=== PATIENT | female | born 1945 | race Caucasian/White ===

== ENCOUNTER 2017-03-19 09:54 | Emergency (ER) | payer OTHER ==
[~2017-03-19] VITALS: Ht 157.5 cm; Wt 61.9 kg
[~2017-03-19 09:54] MED LIST: ASPI81TA11 PO; B COTAB7 PO; CO Q100C9 PO; FISH1000 PO; GLUCTAB PO; LORA10TA7 PO; METO25CR PO; PAXI10TA PO; PERC5TAB12 PO; PLAV75TA PO; RAMI5CAP36 PO; [UNRECOGNIZED DRUG - CODE]
[2017-03-19 10:12] VITALS: BP 145/65; PULSE 56; RESP 16; TEMP 98.3; O2SAT 96
[2017-03-19] MEDS ORDERED: METO25TA6 PO (10:39)
[2017-03-19] MEDS ORDERED: NITR1SUB3 SL (10:39)
[2017-03-19] MEDS ORDERED: ATOR10TA15 PO (10:39)
[2017-03-19] MEDS ORDERED: METF750T PO (10:39)
[2017-03-19] MEDS ORDERED: CLAR10CA3 PO (10:39)
[2017-03-19] MEDS ORDERED: PARO20TA2 PO (10:40)
[2017-03-19] MEDS ORDERED: RAMI5CAP PO (10:40)
[2017-03-19] MEDS ORDERED: ASPI81CH CHEW (10:40)
[2017-03-19] MEDS ORDERED: UBID50CA4 PO (10:40)
[2017-03-19] MEDS ORDERED: CLOP75TA PO (10:40)
[2017-03-19] MEDS ORDERED: OMEGCAP PO (10:40)
[2017-03-19] MEDS ORDERED: VITATAB11 (10:40)
[2017-03-19] MEDS ORDERED: IBUPROFEN 400 MG TAB PO ONE (10:45)
--- NOTE | 2017-03-19 11:02 | PD ---
HPI Chief Complaint: Fall Time Seen by Provider: 10:40 Travel History International Travel<30 days: No Contact w/Intl Traveler<30days: No Traveled to known affect area: No History of Present Illness HPI 71 yo F c/o r wrist pain and r 4th toe pain after a fall from standing at home approx 12 hours prior. extra strength tylenol was helpful at home. no head trauma or loc. pt describes tripping over an area rug at home. pain is constant and worse with palpation. pt fell onto outstretched right hand. PFSH Past Medical History Hx Anticoagulant Therapy: Yes (PLAVIX AND BABY ASPIRIN) Asthma: Yes Blood Disorders: No Anxiety: Yes Depression: No Heart Rhythm Problems: No Cancer: No Cardiovascular Problems: Yes (3 STENTS) High Cholesterol: Yes Chemotherapy: No Chest Pain: Yes Congestive Heart Failure: No COPD: No Cerebrovascular Accident: No Diabetes: Yes Patient Takes Glucophage: No Diminished Hearing: No Endocrine: Yes Gastrointestinal Disorders: No Genitourinary: No Hypertension: Yes Implanted Vascular Access Dvce: Yes Musculoskeletal: No Neurologic: No Psychiatric: Yes Reproductive: No Respiratory: Yes (ASTHMA) Thyroid Disease: No Tubal Ligation: Yes Past Surgical History Abdominal Surgery: Yes (UMBILICAL HERNIA REPAIR ) Body Medical Devices: STENTS X3 Cardiac Surgery: Yes (STENTS x3 ) Cholecystectomy: Yes Eye Surgery: Yes (MACULAR HOLES REPAIRED X 2) Hysterectomy: No Tonsillectomy: Yes Other Surgery: Yes (STENTS X3, TONSILLECTOMY, TUBAL LIGATION, UMBILICAL HERNIA , GALLBLADDER) Family History Family Hypercholesterolemia: Yes Social History Alcohol Use: Yes (3-4 GLASSES OF WINE DAILY) Tobacco Use: Yes (1 1/2 ppd) Substance Use: No Allergies-Medications (Allergen,Severity, Reaction): Coded Allergies: Penicillin (Verified Allergy, Severe, HIVES, 03/19/17) Shellfish (Verified Allergy, Severe, SWELLING, SOB, 03/19/17) Chantix (Verified Allergy, Intermediate, GI UPSET, 03/19/17) Lidocaine (Verified Allergy, Intermediate, BURNING OF SKIN, 03/19/17) Iodine (Verified Allergy, Unknown, SWELLING, SOB, 03/19/17) Uncoded Allergies: ZYBAN (Adverse Reaction, Intermediate, "NIGHTMARES", 10/06/15) Reported Meds & Prescriptions Reported Meds & Active Scripts Active Reported Coenzyme Q-10 (Ubidecarenone) 50 Mg Capsule 100 Mg PO DAILY Clopidogrel (Clopidogrel Bisulfate) 75 Mg Tab 75 Mg PO DAILY Vitamin B Complex (B-Complex Vitamins) 1 Tab Aspirin 81 Mg Chew 81 Mg CHEW DAILY Ramipril 5 Mg Cap 5 Mg PO DAILY Paroxetine (Paroxetine HCl) 20 Mg Tab 20 Mg PO DAILY [place]-3 Fish Oil/Vitamin (Fish Oil-Cholecalciferol) 1,000-1,000 Mg Cap 1 Cap PO BID Nitroglycerin SL (Nitroglycerin) 0.4 Mg Subl 0.4 Mg SL DIRECTED PRN ONE TABLET UNDER THE TONGUE NEEDED FOR CHEST PAIN, MAY REPEAT EVERY FIVE MINUTES FOR A TOTAL OF 3 DOSES OR CALL 911 IF NO RELIEF Metoprolol Succinate ER 24 HR (Metoprolol Succinate) 25 Mg Tab 25 Mg PO DAILY Metformin ER (Metformin HCl) 750 Mg Vane 750 Mg PO BIDPC With evening meal Claritin (Loratadine) 10 Mg Cap 10 Mg PO DAILY Atorvastatin (Atorvastatin Calcium) 10 Mg Tab 40 Mg PO HS Review of Systems General / Constitutional: No: Fever Musculoskeletal: Positive: Pain Physical Exam Narrative GENERAL: 71 yo F, pleasant, mild distress 2/2 pain SKIN: Warm and dry. HEAD: Normocephalic. EYES: No scleral icterus. No injection or drainage. GASTROINTESTINAL: Abdomen soft, non-tender, nondistended. MUSCULOSKELETAL: No cyanosis, or edema. swelling ecchymosis/tenderness about DRUJ on right side toward radial aspect. ecchymosis swelling tenderness about right fourth toe. 2+ radial artery pulse bilaterally. + snuff box tenderness on R. BACK: Nontender without obvious deformity. No CVA tenderness. Data Data Last Documented VS Vital Signs Date Time Temp Pulse Resp B/P Pulse Ox O2 Delivery O2 Flow Rate FiO2 03/19/17 10:12 98.3 56 16 145/65 96 vs reviewed Orders Foot, Complete ([id number]) (03/19/17 10:40) Forearm (2vws) (03/19/17 10:40) Hand, Complete ([id number]) (03/19/17 10:40) Ice/Cold Pack (03/19/17 10:40) Ibuprofen (Motrin) (03/19/17 10:45) Splint Or Brace Apply/Monitor (03/19/17 11:32) Splint Or Brace Apply/Monitor (03/19/17 11:35) Fiberglass Thumb Spica Adult (03/19/17 ) Shoe Cast (03/19/17 ) MDM Medical Decision Making Medical Screen Exam Complete: Yes Emergency Medical Condition: Yes Medical Record Reviewed: Yes Differential Diagnosis Distal radius fx, carpal bone fx, contusion, toe fracture or contusion Narrative Course Last 24 hours Impressions Radius/Ulna X-Ray 03/19/17 1040 Signed Impressions: Service Date/Time: Sunday, March 19, 2017 11:06 - CONCLUSION: Unremarkable study. Kesha Barbour MD Hand X-Ray 03/19/17 1040 Signed Impressions: Service Date/Time: Sunday, March 19, 2017 11:04 - CONCLUSION: Chronic changes and no evidence for acute fracture. Kesha Barbour MD Foot X-Ray 03/19/17 1040 Signed Impressions: Service Date/Time: Sunday, March 19, 2017 11:09 - CONCLUSION: Chronic changes and no evidence for acute fracture. Kesha Barbour MD Thumb spica applied, f/u with hand surgery discussed. Hard sole shoe applied. Tylenol dosing precautions discussed. Pt ready for discharge. Diagnosis Primary Impression: Wrist injury Qualified Code: S69.91XA - Wrist injury, right, initial encounter Additional Impressions: Toe injury Qualified Code: S99.921A - Toe injury, right, initial encounter Fall Qualified Code: W19.XXXA - Fall, initial encounter Referrals: Richy Marquez III, MD 1 week Additional Instructions: PLEASE CONTINUE TO TAKE TYLENOL (NO MORE THAN 3.2 GRAMS PER DAY) FOR PAIN CONTROL. You have a choice when it comes to health care, and we are glad that you chose [facility] Hopefully, we have met your expectations on today's visit. You are welcome to return to [facility] at any time, as we are committed to meeting the health care needs of our community. Med/Other Pt SpecificInfo: No Change to Meds Disposition: 01 DISCHARGE HOME Condition: Simon Rao MD Mar 19, 2017 11:02
--- NOTE | 2017-03-19 11:50 | RADRPT ---
EXAM DATE/TIME: 03/19/2017 11:04 [facility] COMPARISON: No previous studies available for comparison. INDICATIONS : Right hand pain post fall MEDICAL HISTORY : Cardiovascular disease. Hypertension. Diabetes mellitus type 2. SURGICAL HISTORY : Tubal ligation. Cholecystectomy.Tonsillectomy.umbilical hernia repair ENCOUNTER: Initial ACUITY: 1 day PAIN SCORE: 10/10 LOCATION: Right upper extremity FINDINGS: No definite fractures, or dislocations are identified. No definite lytic or sclerotic lesion is seen . Slight degenerative arthritis is present within multiple interphalangeal joints and first carpometa carpal joint. There are punctate calcifications involving the second and third PIP joints may be inde pendent structures chronic in nature. CONCLUSION: Chronic changes and no evidence for acute fracture. Kesha Barbour MD on March 19, 2017 at 11:30 Board Certified Radiologist. This report was verified electronically.
--- NOTE | 2017-03-19 11:51 | RADRPT ---
EXAM DATE/TIME: 03/19/2017 11:06 [facility] COMPARISON: No previous studies available for comparison. INDICATIONS : Right forearm pain post fall MEDICAL HISTORY : Cardiovascular disease. Hypertension. Diabetes mellitus type 2. SURGICAL HISTORY : Tubal ligation. Cholecystectomy.Tonsillectomy.umbilical hernia repair ENCOUNTER: Initial ACUITY: 1 day PAIN SCORE: 7/10 LOCATION: Right upper extremity FINDINGS: No definite fractures, or dislocations are identified. No definite lytic or sclerotic lesion is seen . CONCLUSION: Unremarkable study. Kesha Barbour MD on March 19, 2017 at 11:48 Board Certified Radiologist. This report was verified electronically.
--- NOTE | 2017-03-19 11:52 | RADRPT ---
EXAM DATE/TIME: 03/19/2017 11:09 [facility] COMPARISON: No previous studies available for comparison. INDICATIONS : Right foot pain post fall MEDICAL HISTORY : Cardiovascular disease. Hypertension. Diabetes mellitus type 2. SURGICAL HISTORY : Tubal ligation. Cholecystectomy.Tonsillectomy.umbilical hernia repair ENCOUNTER: Initial ACUITY: 1 day PAIN SCORE: 7/10 LOCATION: Right foot FINDINGS: No definite fractures, or dislocations are identified. No definite lytic or sclerotic lesion is seen . There are degenerative changes within multiple joints mainly the interphalangeal joints and the fir st metatarsophalangeal joint. CONCLUSION: Chronic changes and no evidence for acute fracture. Kesha Barbour MD on March 19, 2017 at 11:49 Board Certified Radiologist. This report was verified electronically.
== END 2017-03-19 11:54 | disposition home or self-care (01) ==
LOC: PHED 09:54 → PHEFT 11:54
DX: S69.91XA Unspecified injury of right wrist, hand and finger(s), initial encounter (principal); S99.921A Unspecified injury of right foot, initial encounter; E11.9 Type 2 diabetes mellitus without complications; I10 Essential (primary) hypertension; E78.00 Pure hypercholesterolemia, unspecified; F17.200 Nicotine dependence, unspecified, uncomplicated; W01.0XXA Fall on same level from slipping, tripping and stumbling without subsequent striking against object, initial encounter; Y92.009 Unspecified place in unspecified non-institutional (private) residence as the place of occurrence of the external cause; Z79.01 Long term (current) use of anticoagulants; Z79.84 Long term (current) use of oral hypoglycemic drugs; Z87.09 Personal history of other diseases of the respiratory system; Z86.59 Personal history of other mental and behavioral disorders; Z86.79 Personal history of other diseases of the circulatory system
CPT/HCPCS: 73090; 73130; 73630; 99284; L3260; L3808